=== PATIENT | female | born 1945 | race Caucasian/White ===

== ENCOUNTER 2019-12-29 15:43 | Outpatient (CLI) | payer MEDICAID, SELFPAY ==
--- NOTE | 2019-12-29 15:55 | XR_ITS ---
WS: [id number] THORACIC SPINE TECHNIQUE: AP and lateral views are performed. HISTORY: CHRONIC RIGHT SIDED THORACIC BACK PAIN COMPARISON: None available. Mild increase in thoracic kyphosis with minimal RIGHT convex curvature upper thoracic spine. No fract ure. Bones are osteopenic. Pedicles are all identified. XR/XR thoracic spine 2V [id number] IMPRESSION: Mild thoracic scoliosis and increased kyphosis. No fracture.
--- NOTE | 2019-12-29 15:55 | XR_ITS ---
WS: [id number] CHEST 2 VIEWS HISTORY: RT SIDED CHEST PAIN COMPARISON: None available. Normal vasculature. No pleural effusion or pneumothorax. Lungs: Hyperexpanded lungs. No pneumonia. Cardiac size: Normal. Mediastinum/Aorta: Mildly ectatic aorta. Bones: Normal. XR/XR chest 2V* [id number] IMPRESSION: Mild chronic emphysema. No pneumonia.
== END 2019-12-29 15:44 | disposition home or self-care (01) ==
LOC: RAD 15:47
PROVIDERS: PCP Registered Nurse; Visit Provider Registered Nurse
DX: Z65.4 Victim of crime and terrorism (principal); R07.9 Chest pain, unspecified; M54.6 Pain in thoracic spine; G89.29 Other chronic pain; M41.84 Other forms of scoliosis, thoracic region; J43.9 Emphysema, unspecified
CPT/HCPCS: 71046; 72070

== ENCOUNTER 2020-07-02 17:03 | Emergency (ER) | payer MEDICAID, SELFPAY ==
[2020-07-02 17:24] VITALS: BP 175/78; PULSE 92; RESP 16; TEMP 36.6; O2SAT 97; BMI 23.8
[2020-07-02 20:30] VITALS: BP 129/60; PULSE 77; RESP 18; O2SAT 96
--- NOTE | 2020-07-02 20:32 | CTR_ITS ---
PROCEDURE INFORMATION: Exam: CT Abdomen And Pelvis With Contrast Exam date and time: 07/02/2020 8:33 PM Age: 75 years old Clinical indication: Injury or trauma; Other: Kicked by sheep; Blunt; Upper; Additional info: Abdominal pain, h/o trauma and also gallstones TECHNIQUE: Imaging protocol: Computed tomography of the abdomen and pelvis with intravenous contrast. Radiation optimization: All CT scans at this facility use at least one of these dose optimization techniques: automated exposure control; mA and/or kV adjustment per patient size (includes targeted exams where dose is matched to clinical indication); or iterative reconstruction. Contrast material: OMNI 300; Contrast volume: 95 ml; Contrast route: INTRAVENOUS (IV); COMPARISON: No relevant prior studies available. RADIATION DOSE METRICS: Total DLP (mGy-cm): 295.46 FINDINGS: Lungs: Lung bases are clear. Liver: The liver is normal. Gallbladder and bile ducts: There is a 9 mm diameter calcified stone in the gallbladder neck and another in the lumen near the fundus. The gallbladder is distended. There is no definite wall thickening or pericholecystic edema. There is subtle mucosal hyperenhancement of the gallbladder diffusely. There is no biliary dilation. Pancreas: The pancreas is unremarkable. Spleen: The spleen is unremarkable. Adrenals: The adrenal glands are unremarkable. Kidneys and ureters: There are simple parapelvic cysts in the left kidney. No hydronephrosis or stones. The right kidney and ureter are unremarkable. Stomach and bowel: The stomach is decompressed, preventing meaningful evaluation of wall thickness. The small bowel is nondilated. The colon is unremarkable. Appendix: The appendix is normal. Intraperitoneal space: There is no free air or significant intraperitoneal free fluid. Vasculature: There is mild aortic atherosclerotic disease. Lymph nodes: There is no lymphadenopathy in the retroperitoneum, mesentery, pelvis or inguinal regions. Urinary bladder: The urinary bladder is unremarkable. Reproductive: The uterus is unremarkable. There is no adnexal mass or large cyst. Bones/joints: There is mild degenerative disease in the lumbar spine. The pelvis and hips are intact. Soft tissues: The abdominal wall is intact. CT/CT abdomen pelvis w con* [id number] IMPRESSION: 1. There is no sign of significant acute traumatic injury in the abdomen or pelvis. 2. Suspicious findings for acute cholecystitis including a stone in the gallbladder neck and a distended gallbladder with mucosal hyperenhancement. Findings are not definitive. Consider ultrasound follow-up. 3. Incidental findings above. COMMENTS: Consistent with the [employer]'s Incidental Findings Committee white paper (J Am Jessica Radiol 2018): Any incidental renal lesion less than 1 cm or classified as too small to characterize, or any incidental cystic renal lesion characterized as simple-appearing, is likely benign. No follow-up imaging is recommended for these lesions per consensus recommendations based on imaging criteria. Radiation Dose CTDIVOL = (mGy): DLP = 295.46 (mGy-cm)
--- NOTE | 2020-07-02 20:35 | ED_ITS ---
Documented by User: Amber Gonzalez MD 07/03/20 21:50 HPI - Abdominal Pain General: Chief Complaint: Abdominal Pain Stated Complaint: abd pain/ kicked by sheep Time Seen by Provider: 07/02/20 20:19 History of Present Illness: HPI narrative: This patient is a 75-year-old female who presents with abdominal pain. She thinks it is related to when she got kicked in the stomach by a sheep a week ago. She said it hurt initially after she was hit but then had gotten better. Today it started up again and has been unrelenting. She also has a history of gallstones and wonders if that might be part of the problem. Her pain is in the epigastric and both upper quadrants. No vomiting. No diarrhea. Her appetite has been poor. She said eating does not make her pain worse. No fevers. No urinary symptoms. MD elicited complaint: abdominal pain Pertinent past history: none Onset (ago): day(s) (1) Pain Consistency: constant Location: Epigastric, LUQ and RUQ Severity: moderate Quality: fullness Radiation: none Migration to: no migration Exacerbating factors: nothing Relieving factors: nothing Associated Symptoms: Reports nausea; Denies chills, fever(s) and vomiting Review of Systems General: Reports: 10 or more systems reviewed and unremarkable except in HPI and below Const: Denies: fever(s), chills, fatigue or malaise Eyes: Denies: change in vision ENMT: Denies: odynophagia Card: Denies: chest pain or swelling of feet/ankles Resp: Denies: dyspnea, productive cough or non-productive cough GI: Reports: abdominal pain and nausea; Denies: vomiting : Denies: flank pain or difficulty voiding Musc: Denies: neck pain or back pain Skin/Breast: Denies: rash Neuro: Denies: headache(s), numbness in extremities or weakness in extremities Boris/Lymph: Denies: easy bruising or easy bleeding Physical Exam Const: COMMON NORMALS: no acute distress, patient oriented x3, no limitations and alert GENERAL APPEARANCE: cooperative and comfortable HENMT: HEAD & SCALP: normal to inspection FACE & SINUS: normal facial exam Eye: GENERAL EYE: appearance normal, both eyes and all related structures Neck/C-Spine: COMMON NORMALS: supple, no meningeal signs and no JVD Chest: COMMONS NORMALS: normal inspection of the chest Resp: COMMON NORMALS: normal respiratory effort, No use of accessory muscles and clear to auscultation bilaterally AUSCULTATION: clear to auscultation bilaterally Cardio: COMMON NORMALS: no JVD, regular rate, regular rhythm and No murmurs present (Cardio) RATE: regular rate RHYTHM: regular rhythm GI: COMMON NORMALS: Normal to inspection, nondistended, normoactive bowel sounds present and Soft to palpation INSPECTION: Yes normal to inspection AUSCULTATION: Yes normoactive bowel sounds PALPATION: Yes Soft to palpation and Yes Tenderness to palpation present (GI) Details: RUQ Back/Pelvis: COMMON NORMALS: thoracic and lumbar spine normal to inspection Extremity: COMMON NORMALS: normal to inspection Neuro: COMMON NORMALS: patient oriented x3, moves all extremities, no focal motor deficits and no sensory deficits noted SENSORIUM/ORIENTATION: Yes alert MENINGEAL SIGNS: Yes no meningeal signs Psych: COMMON NORMALS: mental status grossly normal, cooperative and normal affect Skin: COMMON NORMALS: no rashes or lesions noted and turgor normal GENERAL SKIN EXAM: no rashes or lesions noted and turgor normal Course Vital Signs: Vital signs: Vital Signs Temperature 97.9 F 07/02/20 17:24 Pulse Rate 74 07/03/20 02:25 Respiratory Rate 18 07/03/20 02:25 Blood Pressure 138/64 07/03/20 02:25 Pulse Oximetry 94 07/03/20 02:25 MDM - Abdominal Pain Lab Data: Labs: Lab Results 07/02/20 07/02/20 07/02/20 Range/Units 20:50 20:50 21:30 WBC 9.9 (4.0-10.0) 10^3/ uL RBC 4.22 (4.1-5.3) 10^6/u L Hgb 12.7 (11.5-15.3) g/dL Hct 38.5 (37.0-47.0) % MCV 91.2 (81-99) fL MCH 30.1 (28.0-34.0) pg MCHC 33.0 (30.0-36.0) g/dL RDW 12.7 (12.1-15.1) % Plt Count 245 (130-400) 10^3/c mm MPV 11.0 H (7.4-10.4) fL Neut % (Auto) 68.4 % Lymph % (Auto) 24.0 % [place] % (Auto) 6.0 % Eos % (Auto) 0.9 % Baso % (Auto) 0.4 % Neut # (Auto) 6.79 (1.8-7.7) 10^3/u L Lymph # (Auto) 2.4 (0.8-4.8) 10^3/u L [place] # (Auto) 0.6 (0.2-0.9) 10^3/u L Eos # (Auto) 0.1 (0.0-0.8) 10^3/u L Baso # (Auto) 0.0 (0.0-0.1) 10^3/u L Nucleated RBC % (a uto) 0 % Nucleated RBCs # 0.0 /100WBC Sodium Cancelled Potassium Cancelled Chloride Cancelled Carbon Dioxide Cancelled Anion Gap Cancelled BUN Cancelled Creatinine Cancelled GFR Calculation Cancelled Glucose Cancelled Calculated Osmolal ity Cancelled Calcium Cancelled Total Bilirubin Cancelled AST Cancelled ALT Cancelled Alkaline Phosphata se Cancelled Total Protein Cancelled Albumin Cancelled Globulin Cancelled Lipase Cancelled Urine Color Yellow (Yellow) Urine Appearance Clear (CLEAR) Urine pH 7.0 (5-7) Ur Specific Gravit y 1.010 (1.005-1.030) Urine Protein Neg (Negative) Urine Glucose (UA) Norm (Normal) Urine Ketones Negative (Negative) Urine Blood 3+ H (Negative) Urine Nitrate Negative (Negative) Urine Bilirubin Neg (Negative) Urine Urobilinogen Norm (Negative) mg/dL Ur Leukocyte Jada ase Trace H (Negative) Urine RBC 10-15 H (0-2) /hpf Urine WBC 5-10 H (0-5) /hpf Ur Squamous Epith Cells 5-10 H (0-5) /hpf Amorphous Sediment Not Reportable Urine Bacteria 1+ H (NONE) /hpf 07/02/20 07/02/20 Range/Units 22:45 23:40 WBC (4.0-10.0) 10^3/ uL RBC (4.1-5.3) 10^6/u L Hgb (11.5-15.3) g/dL Hct (37.0-47.0) % MCV (81-99) fL MCH (28.0-34.0) pg MCHC (30.0-36.0) g/dL RDW (12.1-15.1) % Plt Count (130-400) 10^3/c mm MPV (7.4-10.4) fL Neut % (Auto) % Lymph % (Auto) % [place] % (Auto) % Eos % (Auto) % Baso % (Auto) % Neut # (Auto) (1.8-7.7) 10^3/u L Lymph # (Auto) (0.8-4.8) 10^3/u L [place] # (Auto) (0.2-0.9) 10^3/u L Eos # (Auto) (0.0-0.8) 10^3/u L Baso # (Auto) (0.0-0.1) 10^3/u L Nucleated RBC % (a uto) % Nucleated RBCs # /100WBC Sodium Cancelled 139 Potassium Cancelled 4.0 Chloride Cancelled 105 Carbon Dioxide Cancelled 26 Anion Gap Cancelled 12.0 BUN Cancelled 12 Creatinine Cancelled 0.5 GFR Calculation Cancelled Not Reportable Glucose Cancelled 109 Calculated Osmolal ity Cancelled 288 Calcium Cancelled 8.6 Total Bilirubin Cancelled 0.4 AST Cancelled 19 ALT Cancelled 13 Alkaline Phosphata se Cancelled 45 Total Protein Cancelled 6.0 L Albumin Cancelled 3.7 Globulin Cancelled 2.3 Lipase Cancelled 24 Urine Color (Yellow) Urine Appearance (CLEAR) Urine pH (5-7) Ur Specific Gravit y (1.005-1.030) Urine Protein (Negative) Urine Glucose (UA) (Normal) Urine Ketones (Negative) Urine Blood (Negative) Urine Nitrate (Negative) Urine Bilirubin (Negative) Urine Urobilinogen (Negative) mg/dL Ur Leukocyte Jada ase (Negative) Urine RBC (0-2) /hpf Urine WBC (0-5) /hpf Ur Squamous Epith Cells (0-5) /hpf Amorphous Sediment Urine Bacteria (NONE) /hpf Discharge Plan Discharge Patient Disposition: Home Clinical Impression: Gallstone Abdominal pain Qualifiers: Abdominal location: epigastric Qualified Code(s): R10.13 - Epigastric pain Condition: Stable Discharge Orders: Discharge Order (Routine); Ordered 07/03/20 Ordered By: Briana Chauhan Referrals: Dmitriy Mueller MD [Physician] - 1-3 days Allyn Rodriguez [Primary Care Provider] - Discharge Diet: Advance as tolerated Discharge Activity: Resume usual activity Patient Instructions: Abdominal Pain (ED) Discharge Date/Time: 07/03/20 02:29 Coding Level of Care Code ED Hull Drafter for Chg Fwd Exam Comprehensive Documented by User: Briana Chauhan MD 07/03/20 02:02 HPI - Abdominal Pain General: Chief Complaint: Abdominal Pain Stated Complaint: abd pain/ kicked by sheep Time Seen by Provider: 07/02/20 20:19 Course Vital Signs: Vital signs: Vital Signs Temperature 97.9 F 07/02/20 17:24 Pulse Rate 74 07/03/20 02:25 Respiratory Rate 18 07/03/20 02:25 Blood Pressure 138/64 07/03/20 02:25 Pulse Oximetry 94 07/03/20 02:25 MDM - Abdominal Pain MDM Narrative: Medical decision making narrative: Patient presents with abdom inal pain. CT did show gallstones. Got an ultrasound that showed a gallstone in the neck of the gallbladder with no signs of cholecystitis. Patient is pain- free here and abdominal exam is benign at discharge. She is to follow-up with surgeon in 3 to 5 days and return if worsening. She understands agrees to plan. Lab Data: Labs: Lab Results 07/02/20 07/02/20 07/02/20 Range/Units 20:50 20:50 21:30 WBC 9.9 (4.0-10.0) 10^3/ uL RBC 4.22 (4.1-5.3) 10^6/u L Hgb 12.7 (11.5-15.3) g/dL Hct 38.5 (37.0-47.0) % MCV 91.2 (81-99) fL MCH 30.1 (28.0-34.0) pg MCHC 33.0 (30.0-36.0) g/dL RDW 12.7 (12.1-15.1) % Plt Count 245 (130-400) 10^3/c mm MPV 11.0 H (7.4-10.4) fL Neut % (Auto) 68.4 % Lymph % (Auto) 24.0 % [place] % (Auto) 6.0 % Eos % (Auto) 0.9 % Baso % (Auto) 0.4 % Neut # (Auto) 6.79 (1.8-7.7) 10^3/u L Lymph # (Auto) 2.4 (0.8-4.8) 10^3/u L [place] # (Auto) 0.6 (0.2-0.9) 10^3/u L Eos # (Auto) 0.1 (0.0-0.8) 10^3/u L Baso # (Auto) 0.0 (0.0-0.1) 10^3/u L Nucleated RBC % (a uto) 0 % Nucleated RBCs # 0.0 /100WBC Sodium Cancelled Potassium Cancelled Chloride Cancelled Carbon Dioxide Cancelled Anion Gap Cancelled BUN Cancelled Creatinine Cancelled GFR Calculation Cancelled Glucose Cancelled Calculated Osmolal ity Cancelled Calcium Cancelled Total Bilirubin Cancelled AST Cancelled ALT Cancelled Alkaline Phosphata se Cancelled Total Protein Cancelled Albumin Cancelled Globulin Cancelled Lipase Cancelled Urine Color Yellow (Yellow) Urine Appearance Clear (CLEAR) Urine pH 7.0 (5-7) Ur Specific Gravit y 1.010 (1.005-1.030) Urine Protein Neg (Negative) Urine Glucose (UA) Norm (Normal) Urine Ketones Negative (Negative) Urine Blood 3+ H (Negative) Urine Nitrate Negative (Negative) Urine Bilirubin Neg (Negative) Urine Urobilinogen Norm (Negative) mg/dL Ur Leukocyte Jada ase Trace H (Negative) Urine RBC 10-15 H (0-2) /hpf Urine WBC 5-10 H (0-5) /hpf Ur Squamous Epith Cells 5-10 H (0-5) /hpf Amorphous Sediment Not Reportable Urine Bacteria 1+ H (NONE) /hpf 07/02/20 07/02/20 Range/Units 22:45 23:40 WBC (4.0-10.0) 10^3/ uL RBC (4.1-5.3) 10^6/u L Hgb (11.5-15.3) g/dL Hct (37.0-47.0) % MCV (81-99) fL MCH (28.0-34.0) pg MCHC (30.0-36.0) g/dL RDW (12.1-15.1) % Plt Count (130-400) 10^3/c mm MPV (7.4-10.4) fL Neut % (Auto) % Lymph % (Auto) % [place] % (Auto) % Eos % (Auto) % Baso % (Auto) % Neut # (Auto) (1.8-7.7) 10^3/u L Lymph # (Auto) (0.8-4.8) 10^3/u L [place] # (Auto) (0.2-0.9) 10^3/u L Eos # (Auto) (0.0-0.8) 10^3/u L Baso # (Auto) (0.0-0.1) 10^3/u L Nucleated RBC % (a uto) % Nucleated RBCs # /100WBC Sodium Cancelled 139 Potassium Cancelled 4.0 Chloride Cancelled 105 Carbon Dioxide Cancelled 26 Anion Gap Cancelled 12.0 BUN Cancelled 12 Creatinine Cancelled 0.5 GFR Calculation Cancelled Not Reportable Glucose Cancelled 109 Calculated Osmolal ity Cancelled 288 Calcium Cancelled 8.6 Total Bilirubin Cancelled 0.4 AST Cancelled 19 ALT Cancelled 13 Alkaline Phosphata se Cancelled 45 Total Protein Cancelled 6.0 L Albumin Cancelled 3.7 Globulin Cancelled 2.3 Lipase Cancelled 24 Urine Color (Yellow) Urine Appearance (CLEAR) Urine pH (5-7) Ur Specific Gravit y (1.005-1.030) Urine Protein (Negative) Urine Glucose (UA) (Normal) Urine Ketones (Negative) Urine Blood (Negative) Urine Nitrate (Negative) Urine Bilirubin (Negative) Urine Urobilinogen (Negative) mg/dL Ur Leukocyte Jada ase (Negative) Urine RBC (0-2) /hpf Urine WBC (0-5) /hpf Ur Squamous Epith Cells (0-5) /hpf Amorphous Sediment Urine Bacteria (NONE) /hpf Imaging Data ^: CT Abd/Pel: Radiologist's impression: [facility] [address] [place] [address] CT Scan Report Signed Patient: Lay Hewitt Unit #: [id number] : 1945 Age/Sex: 75 / F ADM Date: 07/02/20 Loc: ER Room/Bed: Attending Dr: Ordering Provider/Ordering MD: Amber Gonzalez MD Date of Service: 07/02/20 Procedure(s): CT abdomen pelvis w con* [id number] Accession Number(s): [id number] Report Number: [id number] PROCEDURE INFORMATION: Exam: CT Abdomen And Pelvis With Contrast Exam date and time: 07/02/2020 8:33 PM Age: 75 years old Clinical indication: Injury or trauma; Other: Kicked by sheep; Blunt; Upper; Additional info: Abdominal pain, h/o trauma and also gallstones TECHNIQUE: Imaging protocol: Computed tomography of the abdomen and pelvis with intravenous contrast. Radiation optimization: All CT scans at this facility use at least one of these dose optimization techniques: automated exposure control; mA and/or kV adjustment per patient size (includes targeted exams where dose is matched to clinical indication); or iterative reconstruction. Contrast material: OMNI 300; Contrast volume: 95 ml; Contrast route: INTRAVENOUS (IV); COMPARISON: No relevant prior studies available. RADIATION DOSE METRICS: Total DLP (mGy-cm): 295.46 FINDINGS: Lungs: Lung bases are clear. Liver: The liver is normal. Gallbladder and bile ducts: There is a 9 mm diameter calcified stone in the gallbladder neck and another in the lumen near the fundus. The gallbladder is distended. There is no definite wall thickening or pericholecystic edema. There is subtle mucosal hyperenhancement of the gallbladder diffusely. There is no biliary dilation. Pancreas: The pancreas is unremarkable. Spleen: The spleen is unremarkable. Adrenals: The adrenal glands are unremarkable. Kidneys and ureters: There are simple parapelvic cysts in the left kidney. No hydronephrosis or stones. The right kidney and ureter are unremarkable. Stomach and bowel: The stomach is decompressed, preventing meaningful evaluation of wall thickness. The small bowel is nondilated. The colon is unremarkable. Appendix: The appendix is normal. Intraperitoneal space: There is no free air or significant intraperitoneal free fluid. Vasculature: There is mild aortic atherosclerotic disease. Lymph nodes: There is no lymphadenopathy in the retroperitoneum, mesentery, pelvis or inguinal regions. Urinary bladder: The urinary bladder is unremarkable. Reproductive: The uterus is unremarkable. There is no adnexal mass or large cyst. Bones/joints: There is mild degenerative disease in the lumbar spine. The pelvis and hips are intact. Soft tissues: The abdominal wall is intact. CT/CT abdomen pelvis w con* [id number] IMPRESSION: 1. There is no sign of significant acute traumatic injury in the abdomen or pelvis. 2. Suspicious findings for acute cholecystitis including a stone in the gallbladder neck and a distended gallbladder with mucosal hyperenhancement. Findings are not definitive. Consider ultrasound follow-up. 3. Incidental findings above. COMMENTS: Consistent with the [employer]'s Incidental Findings Committee white paper (J Am Jessica Radiol 2018): Any incidental renal lesion less than 1 cm or classified as too small to characterize, or any incidental cystic renal lesion characterized as simple-appearing, is likely benign. No follow-up imaging is recommended for these lesions per consensus recommendations based on imaging criteria. Radiation Dose CTDIVOL = (mGy): DLP = 295.46 (mGy-cm Discharge Plan Discharge Patient Disposition: Home Clinical Impression: Gallstone Abdominal pain Qualifiers: Abdominal location: epigastric Qualified Code(s): R10.13 - Epigastric pain Condition: Stable Discharge Orders: Discharge Order (Routine); Ordered 07/03/20 Ordered By: Briana Chauhan Referrals: Dmitriy Mueller MD [Physician] - 1-3 days Allyn Rodriguez [Primary Care Provider] - Discharge Diet: Advance as tolerated Discharge Activity: Resume usual activity Patient Instructions: Abdominal Pain (ED) Discharge Date/Time: 07/03/20 02:29 Coding Level of Care Code ED [place] Drafter for Chg Fwd Exam Comprehensive
[2020-07-02] MEDS: ondansetron 2 mg/ML SDV 2 mL 4 MG IVP (20:55)
[2020-07-02 21:00] VITALS: RESP 18
[2020-07-02] MEDS: morphine 4 mg/mL SDV 1 mL 2 MG IVP (21:00)
[2020-07-02 21:30] VITALS: BP 140/63; RESP 88; O2SAT 94
[2020-07-02 22:01] LABS: Basophils % 0.4 %; Eosinophils # 0.1 10^3/uL (0.0-0.8); Eosinophils % 0.9 %; Hematocrit 38.5 % (37.0-47.0); Hemoglobin 12.7 g/dL (11.5-15.3); Lymphocytes # 2.4 10^3/uL (0.8-4.8); Mean Corpuscular Hemoglobin 30.1 pg (28.0-34.0); Mean Corpuscular Volume 91.2 fL (81-99); Monocytes # 0.6 10^3/uL (0.2-0.9); Neutrophils # 6.79 10^3/uL (1.8-7.7); Neutrophils % 68.4 %; Nucleated Red Blood Cells % 0 %; Platelet Count 245 10^3/cmm (130-400); Red Blood Count 4.22 10^6/uL (4.1-5.3); Red Cell Distribution Width 12.7 % (12.1-15.1); White Blood Count 9.9 10^3/uL (4.0-10.0)
[2020-07-02 22:30] VITALS: BP 134/67; PULSE 70; RESP 18; O2SAT 95
[2020-07-02 22:50] LABS: Slide Review Slide Review Perform
[2020-07-02 22:52] LABS: Urine Appearance Clear (CLEAR); Urine Color Yellow (Yellow)
[2020-07-02 22:53] LABS: Bilirubin Urine Neg (Negative); Blood Urine 3+ (Negative); Glucose Urine UA Norm (Normal); Ketones Urine Negative (Negative); Nitrate Urine Negative (Negative); Protein Urine Neg (Negative); Urobilinogen Urine Norm (Negative)
[2020-07-02 22:54] LABS: Add Urine Microscopic? YES; Leukocyte Esterase Urine Trace (Negative)
[2020-07-02 22:56] LABS: Add Urine Culture? Yes; Bacteria Urine 1+ /hpf
[2020-07-02 23:30] VITALS: BP 122/62; PULSE 68; RESP 18; O2SAT 94
[2020-07-03 00:17] LABS: Alanine Aminotransferase 13 U/L (0-33); Albumin Level 3.7 g/dL (3.5-5.2); Alkaline Phosphatase 45 IU/L (35-105); Aspartate Amino Transferase 19 U/L (0-32); Blood Urea Nitrogen 12 mg/dL (8-23); Calcium 8.6 mg/dL (8.5-10.5); Carbon Dioxide 26 mmol/L (22-29); Chloride 105 mmol/L (98-107); Globulin 2.3 g/dL (1.3-4.6); Glucose 109 mg/dL (65-115); Lipase 24 U/L (13-60); Osmolality Calculated 288 mOsm/kg (285-295); Sodium 139 mmol/L (136-145); Total Bilirubin 0.4 mg/dL (0.15-1.2)
[2020-07-03 01:00] VITALS: BP 154/61; PULSE 79; RESP 18; O2SAT 95
[2020-07-03] MEDS: iohexol 300 mg/mL 100 mL Btl IV (01:02)
--- NOTE | 2020-07-03 01:16 | US_ITS ---
WS: [id number] ULTRASOUND ABDOMEN LIMITED CLINICAL INFORMATION: abd pain COMPARISON: None. FINDINGS: Liver Size: Normal. Craniocaudal length: 14.6 cm. Echogenicity: Normal. Surface nodularity: None. Mass (size and location): None. Bile ducts Intrahepatic ducts: Normal. Common bile duct diameter: 0.3 cm. Gallbladder Cholelithiasis. Prominent calculus in the gallbladder neck measuring 1.5 cm Gallstones: Present Gallbladder sludge: None. Gallbladder wall thickening: None. Pericholecystic fluid: None. Sonographic Davis sign: Absent. Pancreas Normal as visualized. Right kidney: Normal. Hydronephrosis: None. Size: 10.0 cm x 5.6 cm x 5.2 cm. Abdominal aorta and IVC Visualized portions are normal. Ascites: None. US/US gall bladder [id number] IMPRESSION: 1. Cholelithiasis with calculi extending to the gallbladder neck. No perichole cystic fluid or wall thickening. 2. Normal common bile duct. 3. Normal liver. 4. No hydronephrosis in right kidney..
[2020-07-03 02:25] VITALS: BP 138/64; PULSE 74; RESP 18; O2SAT 94
--- NOTE | 2020-07-03 02:28 | PC.NURSE ---
agree withthis assessment
--- NOTE | 2020-07-03 09:26 | DCPLANNER ---
grocery department manager had message to schedule a follow up appointment for patient with general surgery. grocery department manager called [facility], spoke with Amelie, gave clinic patients information. grocery department manager was told that patients information would be printed and reviewed. Clinic will call patient with appointment information.
--- NOTE | 2020-07-05 14:51 | DCPLANNER ---
Patient has a follow up appointment for patient with [facility] for Thursday, July 09, 2020 at 3:[address] Mueller. Clinic will call patient with appointment information.
--- NOTE | 2020-07-12 15:04 | DCPLANNER ---
Patient had a follow up appointment scheduled for 07.09.[address] Mueller - patient did attend appointment.
== END 2020-07-03 02:29 | disposition home or self-care (01) ==
PROVIDERS: Emergency Provider Emergency Medicine; PCP Registered Nurse
DX: K80.80 Other cholelithiasis without obstruction (principal)
CPT/HCPCS: 12345; 74177; 76705; 80053; 81001; 83690; 85025; 87086; 96374; 96375; 99283; J2270; J2405; Q9967

== ENCOUNTER 2020-09-20 15:11 | Outpatient (CLI) | payer MEDICAID, SELFPAY ==
--- NOTE | 2020-09-20 15:34 | XR_ITS ---
WS: [id number] RIGHT FOREARM 2 VIEWS HISTORY: RIGHT ARM PAIN COMPARISON: None available. No fracture or dislocation. No foreign body or joint effusion. Small erosions at the ulnar styloid. XR/XR forearm RT 2V [id number] IMPRESSION: Small erosions at the ulnar styloid. Otherwise negative.
--- NOTE | 2020-09-20 15:34 | XR_ITS ---
WS: [id number] RIGHT WRIST: 3 VIEW(S) TECHNIQUE: PA, oblique and lateral. HISTORY: RIGHT WRIST PAIN COMPARISON: None available. No acute fracture or dislocation. Small erosions involving the ulnar styloid. Mild narrowing of the r adiocarpal joint. No dislocation. No soft tissue swelling. XR/XR wrist RT min 3V* [id number] IMPRESSION: 1. Erosions at the ulnar styloid. Erosions in this location can be seen with r heumatoid arthritis. 2. Mild narrowing of the radiocarpal joint.
== END 2020-09-20 15:12 | disposition home or self-care (01) ==
PROVIDERS: PCP Registered Nurse; Visit Provider Family Medicine
DX: M25.531 Pain in right wrist; M79.601 Pain in right arm; M85.88 Other specified disorders of bone density and structure, other site
CPT/HCPCS: 73090; 73110

== ENCOUNTER → 2020-10-10 13:59 | Outpatient (BNVA) | payer MEDICAID, SELFPAY | PROVIDERS: PCP Registered Nurse; Visit Provider Nurse Practitioner | DX: F03.90 Unspecified dementia, unspecified severity, without behavioral disturbance, psychotic disturbance, mood disturbance, and anxiety (principal); R41.3 Other amnesia | CPT/HCPCS: 99205 ==

== ENCOUNTER 2020-12-03 10:56 | Outpatient (CLI) | payer MEDICAID, SELFPAY ==
--- NOTE | 2020-12-03 11:00 | MR_ITS ---
WS: [id number] MRI BRAIN WITH AND WITHOUT CONTRAST HISTORY: F03.90 - Unspecified dementia without behavioral disturbance COMPARISON: None available. TECHNIQUE: Multiplanar imaging performed through the brain with MultiHance 12 ml's IV. Large amount of artifact through the brain due to patient dental hardware. No acute infarcts are seen. Caro-white matter differentiation is well preserved. Scattered T2 and FLA IR signal hyperintensities from mild chronic ischemic disease. Portions of the brain are being obscur ed by artifact. No hemorrhage. Mild atrophy and volume loss. Ventricles and extra-axial spaces are normal. Clivus and pituitary gland are normal. Visualized posterior fossa and brainstem are negative as visualized. Postcontrast images are negative for masses or vascular malformations. Dural venous sinuses are normal. Paranasal sinuses: Well aerated with no significant disease. Mastoid air cells: Normal. Calvarium and scalp: Normal. MR/MR head wo/w con [id number] IMPRESSION: 1. Study is limited by significant artifact from patient's dental hardware. 2. No acute infarcts. 3. Mild chronic microvascular ischemic disease. 4. No enhancing masses within the visualized brain.
[2020-12-03 12:16] LABS: Blood Urea Nitrogen 10 mg/dL (8-23)
== END 2020-12-03 10:57 | disposition home or self-care (01) ==
PROVIDERS: PCP Registered Nurse; Visit Provider Nurse Practitioner
DX: R41.3 Other amnesia (principal); F03.90 Unspecified dementia, unspecified severity, without behavioral disturbance, psychotic disturbance, mood disturbance, and anxiety; I67.82 Cerebral ischemia
CPT/HCPCS: 36415; 70553; 82565; 84520; A9579

== ENCOUNTER → 2021-03-27 11:06 | Outpatient (BNVA) | payer MEDICAID, SELFPAY | PROVIDERS: PCP Family Medicine; Visit Provider Nurse Practitioner | DX: F03.90 Unspecified dementia, unspecified severity, without behavioral disturbance, psychotic disturbance, mood disturbance, and anxiety (principal) | CPT/HCPCS: 99213; 99214 ==

== ENCOUNTER 2022-05-20 20:33 | Emergency (ER) | payer MEDICAID, SELFPAY ==
[2022-05-20 20:39] VITALS: BP 171/73; PULSE 75; RESP 18; O2SAT 97
--- NOTE | 2022-05-20 20:40 | ECG_ITS ---
[facility] Test Date: 2022-05-20 Pat Name: Lay Hewitt Department: Room: Gender: Female Child Guidance Counselor: : 1945 Requested By: Pamella Whitt Order Number: [id number] Nigel MD: Miracle Figueroa M.D. Measurements Intervals [place] Rate: 71 P: 41 CT: 142 QRS: 9 QRSD: 78 T: 27 QT: 391 QTc: 426 Interpretive Statements SINUS RHYTHM No previous ECG available for comparison Electronically Signed On 05-21-2022 17:34:32 CDT by Miracle Figueroa M.D. [id number]
--- NOTE | 2022-05-20 20:40 | XRR_ITS ---
PROCEDURE INFORMATION: Exam: XR Chest Exam date and time: 05/20/2022 8:45 PM Age: 77 years old Clinical indication: Angina; Additional info: Chest pain TECHNIQUE: Imaging protocol: Radiologic exam of the chest. Views: 1 view. COMPARISON: CR XR chest 2V* [id number] 12/29/2019 4:06 PM FINDINGS: Lungs: Emphysematous changes. Pleural spaces: Unremarkable. No pleural effusion. No pneumothorax. Heart/Mediastinum: Unremarkable. No cardiomegaly. Bones/joints: Unremarkable. XR/XR chest 1V portable [id number] IMPRESSION: Emphysematous changes, negative for infiltrate.
--- NOTE | 2022-05-20 21:13 | W.ED.CHESTPA ---
HPI - Chest Pain General: Chief Complaint: Chest Pain Stated Complaint: Chest Pain Time Seen by Provider: 05/20/22 20:40 [facility] PFSH: Medical History Dementia Memory loss Social History (Updated 03/27/21 @ 11:30 by Kiersten Novak LPN) Smoking and tobacco status: never smoked History of recent travel: Yes Course Vital Signs: Vital signs: Vital Signs Pulse Rate 75 05/20/22 20:39 Respiratory Rate 18 05/20/22 20:39 Blood Pressure 171/73 05/20/22 20:39 Pulse Oximetry 97 05/20/22 20:39 Oxygen Delivery Me thod 05/20/22 20:39 MDM - Chest Pain Lab Data : 05/20/22 20:47 05/20/22 20:47 Radiology Impressions Chest X-Ray 05/20/22 20:40 IMPRESSION: Emphysematous changes, negative for infiltrate. Discharge Plan Discharge Condition: Stable Prescriptions: No Action No Known Home Medications Referrals: Gayle Coppola DO [Primary Care Provider] - Coding Level of Care Code ED Manager Security And Safety for Chg Sandra
[2022-05-20 21:14] LABS: Basophils % 0.5 %; Eosinophils # 0.1 10^3/uL (0.0-0.8); Eosinophils % 1.8 %; Hematocrit 37.4 % (37.0-47.0); Hemoglobin 12.4 g/dL (11.5-15.3); Lymphocytes # 2.5 10^3/uL (0.8-4.8); Lymphocytes % 31.5 %; Mean Corpuscular HGB Conc 33.2 g/dL (30.0-36.0); Mean Corpuscular Hemoglobin 30.2 pg (28.0-34.0); Mean Platelet Volume 9.9 fL (7.4-10.4); Monocytes # 0.6 10^3/uL (0.2-0.9); Monocytes % 7.7 %; Neutrophils # 4.63 10^3/uL (1.8-7.7); Neutrophils % 58.1 %; Nucleated Red Blood Cells % 0 %; Platelet Count 265 10^3/cmm (130-400); Red Blood Count 4.11 10^6/uL (4.1-5.3); Red Cell Distribution Width 12.1 % (12.1-15.1)
--- NOTE | 2022-05-20 21:15 | ED_ITS ---
Documented by User: Pamella Whitt MD 05/27/22 18:28 HPI - General Adult General: Chief complaint: Chest Pain Stated complaint: Chest Pain Time Seen by Provider: 05/20/22 20:40 History of Present Illness: Patient is a 77-year-old female with no past medical history presents emergency room with intermittent worsening chest pain for the last month. Patient tells me that the chest pain is sharp lasting for 10 minutes at a time. Patient's chest pain is worse with inspiration. Pain is positional worse with sitting up and lying down. Patient reports exertional dyspnea. Patient denies any pressure-like chest pain, radiation to the arm, leg or jaw. Patient has no nausea vomiting, diaphoresis. Patient denies any abdominal pain, complaints diarrhea/melena/hematochezia. To increase frequency of these chest pain, family decided bring patient to the emergency room. Onset: 1 month ago Duration:1 month Location: home Severity:moderate Associated symptoms: Reports chest pain (+sharp chest pain); Deny dyspnea, nausea, rash, palpitations or vomiting Review of Systems Const: Denies: fever(s) or chills Eyes: Denies: change in vision ENMT: Denies: mouth pain Card: Reports: chest pain (+sharp chest pain) and dyspnea on exertion; Denies: palpitations Resp: Denies: dyspnea or non-productive cough GI: Denies: abdominal pain, nausea, vomiting or diarrhea : Denies: dysuria Musc: Denies: extremity pain Skin/Breast: Denies: rash or new lesions Neuro: Denies: weakness in extremities Psych: Reports: other (Normal mood) Boris/Lymph: Denies: easy bruising [facility] PFSH: Medical History Dementia Memory loss Social History Smoking and tobacco status: never smoked History of recent travel: Yes Physical Exam Const: COMMON NORMALS: alert HENMT: COMMON NORMALS: atraumatic HEAD & SCALP: atraumatic MOUTH: moist mucous membranes not abnormal Eye: COMMON NORMALS: EOMs intact bilaterally and conjunctivae normal CONJUNCTIVA: Yes conjunctivae normal Neck/C-Spine: COMMON NORMALS: full ROM and supple Resp: COMMON NORMALS: normal respiratory effort and clear to auscultation bilaterally AUSCULTATION: clear to auscultation bilaterally Cardio: COMMON NORMALS: regular rate RATE: regular rate OTHER: 2+ radial pulses b/l GI: COMMON NORMALS: Soft to palpation and non-tender PALPATION: Yes Soft to palpation OTHER: No focal TTP. NO guarding rebound, guarding, rigidity. No CVA tenderness to percussion. Neg Davis/Neg McBurney's point tenderness, no suprabupic tenderness to palpation. Extremity: COMMON NORMALS: full ROM Neuro: SENSORIUM/ORIENTATION: Yes alert MOTOR EXAM: No Abnormal motor strength present and Other motor observations present (no focal motor deficits) Psych: COMMON NORMALS: speech normal SPEECH: Yes normal speech MOOD & AFFECT: Yes euthymic mood Course Vital Signs: Vital signs: Vital Signs Pulse Rate 63 05/21/22 00:06 Respiratory Rate 20 H 05/21/22 00:06 Blood Pressure 122/50 05/21/22 00:06 Pulse Oximetry 97 05/21/22 00:06 Oxygen Delivery Me thod 05/20/22 23:13 MDM - General Adult Medical Decision Making Patient is a 77-year-old female with no past medical history presents emergency room with intermittent worsening chest pain for the last month. On physical, patient is noted to be hypertensive to 170/90. Pulses 2+ bilaterally. No other focal findings on physical exam. Case signed out to Dr. Chauhan. Patient presents with chest pain sharp in nature is atypical troponins are negative CT showed no acute abnormality she is pain-free currently she is stable for discharge regular follow-up with cardiology she return if worsening. Lab Data : 05/20/22 20:47 05/20/22 20:47 Radiology Impressions Chest X-Ray 05/20/22 20:40 IMPRESSION: Emphysematous changes, negative for infiltrate. Chest CTA 05/20/22 21:35 IMPRESSION: 1. Negative for pulmonary embolus. 2. 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 3. Cardiomegaly. 4. Coronary artery atherosclerotic calcifications. 5. Bilateral dependent atelectasis. Laboratory Results WBC 8.0 10^3/uL (4.0-10.0) 05/20/22 20:47 RBC 4.11 10^6/uL (4.1-5.3) 05/20/22 20:47 Hgb 12.4 g/dL (11.5-15.3) 05/20/22 20: Hct 37.4 % (37.0-47.0) 05/20/22: MCV 91.0 fl (81-99) 05/20/22: MCH 30.2 pg (28.0-34.0) 05/20/22: MCHC 33.2 g/dL (30.0-36.0) 05/20/22: RDW 12.1 % (12.1-15.1) 05/20/22: Plt Count 265 10^3/cmm (130-400) 05/20/22: MPV 9.9 fL (7.4-10.4) 05/20/22: Neut % (Auto) 58.1 % 05/20/22: Lymph % (Auto) 31.5 % 05/20/22: [place] % (Auto) 7.7 % 05/20/22: Eos % (Auto) 1.8 % 05/20/22: Baso % (Auto) 0.5 % 05/20/22: Neut # (Auto) 4.63 10^3/uL (1.8-7.7) 05/20/22: Lymph # (Auto) 2.5 10^3/uL (0.8-4.8) 05/20/22: [place] # (Auto) 0.6 10^3/uL (0.2-0.9) 05/20/22: Eos # (Auto) 0.1 10^3/uL (0.0-0.8) 05/20/22: Baso # (Auto) 0.0 10^3/uL (0.0-0.1) 05/20/22: Nucleated RBC % (auto) 0 % 05/20/22: Nucleated RBCs # 0.0 /100WBC 05/20/22: D-Dimer 1.27 ug/mIFEU (0-0.59) H 05/20/22 20: Sodium 138 mmol/L (136-145) 05/20/22: Potassium 3.7 mmol/L (3.5-5.1) 05/20/22 20:47 Chloride 104 mmol/L (98-107) 05/20/22 20:47 Carbon Dioxide 24 mmol/L (22-29) 05/20/22 20:47 Anion Gap 13.7 (5-19) 05/20/22 20:47 BUN 20 mg/dL (8-23) 05/20/22 20:47 Creatinine 0.5 mg/dL (0.5-0.9) 05/20/22 20:47 GFR Calculation Not Reportable 05/20/22 20:47 Glucose 115 mg/dL (65-115) 05/20/22 20:47 Calculated Osmolality 290 mOsm/kg (285-295) 05/20/22 20:47 Calcium 8.7 mg/dL (8.5-10.5) 05/20/22 20:47 Troponin T Baseline 8 ng/L (0-10) 05/20/22 20:47 Troponin T 120 Minute 8.05 ng/L (0-10) 05/20/22 23:06 Delta Troponin T 0.05 ABS# (0-10) 05/20/22 23:06 Imaging Data Other Imaging: Radiologist's impression: [facility] [place] [address] XRay Report Signed Patient: Lay Hewitt Unit #: [id number] : 1945 Age/Sex: 77 / F ADM Date: 05/20/22 Loc: ER Room/Bed: Attending Dr: Ordering Provider/Ordering MD: Pamella Whitt MD Date of Service: 05/20/22 Procedure(s): XR chest 1V portable [id number] Accession Number(s): [id number] Report Number: [id number] PROCEDURE INFORMATION: Exam: XR Chest Exam date and time: 05/20/2022 8:45 PM Age: 77 years old Clinical indication: Angina; Additional info: Chest pain TECHNIQUE: Imaging protocol: Radiologic exam of the chest. Views: 1 view. COMPARISON: CR XR chest 2V* [id number] 12/29/2019 4:06 PM FINDINGS: Lungs: Emphysematous changes. Pleural spaces: Unremarkable. No pleural effusion. No pneumothorax. Heart/Mediastinum: Unremarkable. No cardiomegaly. Bones/joints: Unremarkable. XR/XR chest 1V portable [id number] IMPRESSION: Emphysematous changes, negative for infiltrate. ? Dictated By: Stan Hernández MD Signed By: Stan Hernández MD Signed Date/Time: 05/20/222106 DD/ 44 Discharge Plan Discharge Patient Disposition: Home Clinical Impression: Chest pain Condition: Stable Prescriptions: No Action No Known Home Medications Discharge Orders: Discharge ED (Routine); Ordered 05/20/22 Ordered By: Briana Chauhan Referrals: Gayle Coppola DO [Primary Care Provider] - 1-3 days Discharge Diet: Advance as tolerated Discharge Activity: Resume usual activity Patient Instructions: Chest Pain (ED) Coding Level of Care Code ED Park Attendant for Chg Fwd Exam Comprehensive Documented by User: Briana Chauhan MD 05/20/22 23:51 HPI - General Adult General: Chief complaint: Chest Pain Stated complaint: Chest Pain Time Seen by Provider: 05/20/22 20:40 [facility] PFSH: Medical History Dementia Memory loss Social History Smoking and tobacco status: never smoked History of recent travel: Yes Course Vital Signs: Vital signs: Vital Signs Pulse Rate 63 05/21/22 00:06 Respiratory Rate 20 H 05/21/22 00:06 Blood Pressure 122/50 05/21/22 00:06 Pulse Oximetry 97 05/21/22 00:06 Oxygen Delivery Me thod 05/20/22 23:13 [facility] - General Adult Medical Decision Making Patient is a 77-year-old female with no past medical history presents emergency room with intermittent worsening chest pain for the last month. On physical, patient is noted to be hypertensive to 170/90. Pulses 2+ bilaterally. No other focal findings on physical exam. Patient presents with chest pain sharp in nature is atypical troponins are negative CT showed no acute abnormality she is pain-free currently she is stable for discharge regular follow-up with cardiology she return if worsening. Lab Data : 05/20/22 20:47 05/20/22 20:47 Radiology Impressions Chest X-Ray 05/20/22 20:40 IMPRESSION: Emphysematous changes, negative for infiltrate. Chest CTA 05/20/22 21:35 IMPRESSION: 1. Negative for pulmonary embolus. 2. 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 3. Cardiomegaly. 4. Coronary artery atherosclerotic calcifications. 5. Bilateral dependent atelectasis. Laboratory Results WBC 8.0 10^3/uL (4.0-10.0) 05/20/22 20:47 RBC 4.11 10^6/uL (4.1-5.3) 05/20/22 20:47 Hgb 12.4 g/dL (11.5-15.3) 05/20/22 20:47 Hct 37.4 % (37.0-47.0) 05/20/22 20:47 MCV 91.0 fl (81-99) 05/20/22 20:47 MCH 30.2 pg (28.0-34.0) 05/20/22 20:47 MCHC 33.2 g/dL (30.0-36.0) 05/20/22 20:47 RDW 12.1 % (12.1-15.1) 05/20/22 20:47 Plt Count 265 10^3/cmm (130-400) 05/20/22 20:47 MPV 9.9 fL (7.4-10.4) 05/20/22 20:47 Neut % (Auto) 58.1 % 05/20/22 20:47 Lymph % (Auto) 31.5 % 05/20/22 20:47 [place] % (Auto) 7.7 % 05/20/22 20:47 Eos % (Auto) 1.8 % 05/20/22 20:47 Baso % (Auto) 0.5 % 05/20/22 20:47 Neut # (Auto) 4.63 10^3/uL (1.8-7.7) 05/20/22 20:47 Lymph # (Auto) 2.5 10^3/uL (0.8-4.8) 05/20/22 20:47 [place] # (Auto) 0.6 10^3/uL (0.2-0.9) 05/20/22 20:47 Eos # (Auto) 0.1 10^3/uL (0.0-0.8) 05/20/22 20:47 Baso # (Auto) 0.0 10^3/uL (0.0-0.1) 05/20/22 20:47 Nucleated RBC % (auto) 0 % 05/20/22 20:47 Nucleated RBCs # 0.0 /100WBC 05/20/22 20:47 D-Dimer 1.27 ug/mIFEU (0-0.59) H 05/20/22 20:47 Sodium 138 mmol/L (136-145) 05/20/22 20:47 Potassium 3.7 mmol/L (3.5-5.1) 05/20/22 20:47 Chloride 104 mmol/L (98-107) 05/20/22 20:47 Carbon Dioxide 24 mmol/L (22-29) 05/20/22 20:47 Anion Gap 13.7 (5-19) 05/20/22 20:47 BUN 20 mg/dL (8-23) 05/20/22 20:47 Creatinine 0.5 mg/dL (0.5-0.9) 05/20/22 20:47 GFR Calculation Not Reportable 05/20/22 20:47 Glucose 115 mg/dL (65-115) 05/20/22 20:47 Calculated Osmolality 290 mOsm/kg (285-295) 05/20/22 20:47 Calcium 8.7 mg/dL (8.5-10.5) 05/20/22 20:47 Troponin T Baseline 8 ng/L (0-10) 05/20/22 20:47 Troponin T 120 Minute 8.05 ng/L (0-10) 05/20/22 23:06 Delta Troponin T 0.05 ABS# (0-10) 05/20/22 23:06 Discharge Plan Discharge Patient Disposition: Home Clinical Impression: Chest pain Condition: Stable Prescriptions: No Action No Known Home Medications Discharge Orders: Discharge ED (Routine); Ordered 05/20/22 Ordered By: Briana Chauhan Referrals: Gayle Coppola DO [Primary Care Provider] - 1-3 days Discharge Diet: Advance as tolerated Discharge Activity: Resume usual activity Patient Instructions: Chest Pain (ED) Coding Level of Care Code ED Park Attendant for Chg Fwd Exam Comprehensive
[2022-05-20 21:27] LABS: Troponin(5th) Baseline 8 ng/L (0-10)
[2022-05-20 21:28] LABS: D Dimer 1.27 ug/mIFEU (0-0.59)
[2022-05-20 21:29] LABS: Blood Urea Nitrogen 20 mg/dL (8-23); Calcium 8.7 mg/dL (8.5-10.5); Carbon Dioxide 24 mmol/L (22-29); Chloride 104 mmol/L (98-107); Glucose 115 mg/dL (65-115); Osmolality Calculated 290 mOsm/kg (285-295); Sodium 138 mmol/L (136-145)
--- NOTE | 2022-05-20 21:35 | CTR_ITS ---
PROCEDURE INFORMATION: Exam: CTA Chest With Contrast Exam date and time: 05/20/2022 9:51 PM Age: 77 years old Clinical indication: Pain and abnormal findings; Abnormal diagnostic tests; Elevated d-dimer; Chest pressure; Patient HX: C/O chest pain with elevated d dimer. ; Additional info: Sharp chest pain TECHNIQUE: Imaging protocol: Computed tomographic angiography of the chest with contrast. 3D rendering (Not supervised by radiologist): MIP and/or 3D reconstructed images were created by the technologist. Radiation optimization: All CT scans at this facility use at least one of these dose optimization techniques: automated exposure control; mA and/or kV adjustment per patient size (includes targeted exams where dose is matched to clinical indication); or iterative reconstruction. Contrast material: OMNI 350; Contrast volume: 84 ml; Contrast route: INTRAVENOUS (IV); COMPARISON: CR (CHEST, ) 05/20/2022 8:45 PM RADIATION DOSE METRICS: Total DLP (mGy-cm): 237.91 FINDINGS: Pulmonary arteries: Normal. No pulmonary emboli. 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 Lungs: Bilateral dependent atelectasis. Pleural spaces: Unremarkable. No pneumothorax. No pleural effusion. Heart: Cardiomegaly. Coronary artery atherosclerotic calcifications. Lymph nodes: Unremarkable. No enlarged lymph nodes. Bones/joints: Unremarkable. No acute fracture. Soft tissues: Unremarkable. CT/CT angio chest PE protcl [id number] IMPRESSION: 1. Negative for pulmonary embolus. 2. 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 3. Cardiomegaly. 4. Coronary artery atherosclerotic calcifications. 5. Bilateral dependent atelectasis.
[2022-05-20] MEDS: iohexol 350 mg/mL 100 mL Btl IV (21:58)
[2022-05-20 22:17] LABS: Anion Gap 13.7 (5-19); Potassium 3.7 mmol/L (3.5-5.1)
[2022-05-20 22:32] VITALS: BP 128/52; PULSE 86; RESP 16; O2SAT 97
[2022-05-20 23:13] VITALS: BP 124/50; PULSE 62; RESP 16; O2SAT 94
[2022-05-20 23:36] LABS: Troponin 5 2HR 8.05 ng/L (0-10)
[2022-05-20 23:45] LABS: Troponin 5 2HR Delta 0.05 ABS# (0-10)
[2022-05-21 00:06] VITALS: BP 122/50; PULSE 63; RESP 20; O2SAT 97
--- NOTE | 2022-05-21 13:25 | DCPLANNER ---
Addendum entered by Martha Jang 06/13/22 10:02: Patient had a follow up appointment for patient with Dr. Santiago at [facility] - patient did attend appointment. Addendum entered by Martha Jang 05/27/22 08:14: Patient has a follow up appointment scheduled for May at 11:[address] Santiago at [facility]. Clinic will call patient with appointment information. Original Note: transportation solutions manager had message to schedule a follow up appointment for patient with Dr. Santiago at [facility]. transportation solutions manager sent patients information to the front office staff at [facility]. Patients information will be printed and reviewed. Clinic will call patient with appointment information.
--- NOTE | 2022-05-21 13:33 | DCPLANNER ---
Addendum entered by Martha Jang 09/03/22 11:42: Patient had a follow up appointment scheduled with heart care - patient did not attend appointment Addendum entered by Martha Jang 05/27/22 08:14: Patient has a follow up appointment scheduled for Thursday, July 30, 2022 at 2:[address] Leigh at [facility]. Clinic will call patient with appointment information. Original Note: work manager had message to schedule a follow up appointment for patient with cardiology for chest pain. work manager sent patients information to the front office staff at [facility]. Patients information will be printed and reviewed. Clinic will call patient with appointment information.
== END 2022-05-21 00:07 | disposition home or self-care (01) ==
PROVIDERS: Emergency Medicine; Emergency Provider Emergency Medicine; PCP Family Medicine
DX: R07.9 Chest pain, unspecified (principal); F03.90 Unspecified dementia, unspecified severity, without behavioral disturbance, psychotic disturbance, mood disturbance, and anxiety
CPT/HCPCS: 71045; 71275; 80048; 84484; 85025; 85378; 93005; 99285; Q9967

== ENCOUNTER → 2022-06-12 10:58 | Outpatient (BNVA) | payer MEDICAID, SELFPAY | PROVIDERS: PCP Family Medicine; Visit Provider Thoracic Surgery (Cardiothoracic Vascular Surgery) | DX: I72.9 Aneurysm of unspecified site (principal) | CPT/HCPCS: 99203 ==